=== PATIENT | female | born 1975 | race Caucasian/White ===

== ENCOUNTER 2017-02-01 22:29 | Emergency (ER) | payer MEDICARE ==
[~2017-02-01] VITALS: Ht 160 cm; Wt 139.4 kg
[2017-02-01 22:33] VITALS: BP 159/87
== END 2017-02-02 00:38 | disposition home or self-care (01) ==
LOC: ED 23:25
DX: S63.522A Sprain of radiocarpal joint of left wrist, initial encounter (principal); I10 Essential (primary) hypertension; E11.9 Type 2 diabetes mellitus without complications; E78.5 Hyperlipidemia, unspecified; M54.9 Dorsalgia, unspecified; G89.29 Other chronic pain; M19.90 Unspecified osteoarthritis, unspecified site; W01.0XXA Fall on same level from slipping, tripping and stumbling without subsequent striking against object, initial encounter; Y93.89 Activity, other specified; Y92.89 Other specified places as the place of occurrence of the external cause; Y99.8 Other external cause status
CPT/HCPCS: 29125